=== PATIENT | female | born 1945 | race Caucasian/White ===

== ENCOUNTER 2023-11-11 09:33 | Emergency (ER) | payer OTHER ==
[~2023-11-11] VITALS: Ht 160 cm; Wt 57.2 kg
[2023-11-11 09:35] VITALS: BP_SYST 174; PULSE 66; RESP 18; TEMP 96.8; O2SAT 98
[2023-11-11 10:15] LABS: BASOPHILS % (AUTO) 0.5 % (0.0-2.0); EOSINOPHILS # (AUTO) 0.1 K/uL (0.0-0.4); EOSINOPHILS % (AUTO) 0.8 % (0.0-4.0); HEMATOCRIT 40.8 % (36-48); HEMOGLOBIN 13.6 g/dL (12.0-16.0); LYMPHOCYTES # (AUTO) 2.4 K/uL (1.0-5.5); LYMPHOCYTES % (AUTO) 31.7 % (20.5-51.5); MEAN CORPUSCULAR HEMOGLOBIN 32 pg (27-31); MEAN CORPUSCULAR HGB CONC 33 % (32-36); MEAN CORPUSCULAR VOLUME 95 fL (79.0-98.0); MONOCYTES # (AUTO) 0.6 K/uL (0.0-1.0); MONOCYTES % (AUTO) 7.7 % (1.7-9.3); NEUTROPHILS # (AUTO) 4.4 K/uL (1.8-7.7); NEUTROPHILS % (AUTO) 59.3 % (40.0-70.0); PLATELET COUNT (AUTO) 258 K/uL (130-430); RED BLOOD CELL COUNT(AUTO) 4.28 MIL/uL (4.2-6.2); RED CELL DISTRIBUTION WIDTH 14.3 % (9.0-15.0); WHITE BLOOD COUNT (AUTO) 7.5 K/uL (4.8-10.8)
[2023-11-11 10:32] LABS: ANION GAP 12 (5-15); CALCIUM 9.1 mg/dL (8.4-11.0); CARBON DIOXIDE 24 mmol/L (23-29); CHLORIDE 105 mmol/L (98-107); CREATININE 1.27 mg/dL (0.55-1.30); GLUCOSE 91 mg/dL (74-106); POTASSIUM 3.6 mmol/L (3.5-5.1); SODIUM SERUM 141 mmol/L (136-145); UREA NITROGEN, BLOOD 16 mg/dL (8-21)
[2023-11-11] MEDS ORDERED: NAPR-688 PO (10:52)
[2023-11-11] MEDS ORDERED: CLON0.5T4 PO (10:52)
[2023-11-11 11:20] VITALS: BP_SYST 119; PULSE 69; RESP 18; O2SAT 99
== END 2023-11-11 11:10 | disposition home or self-care (01) ==
LOC: SED 09:33
DX: R07.89 Other chest pain (principal); M54.2 Cervicalgia; M25.512 Pain in left shoulder; I10 Essential (primary) hypertension; Z79.899 Other long term (current) drug therapy; Z79.2 Long term (current) use of antibiotics
CPT/HCPCS: 36415; 71045; 80048; 83880; 84484; 85025; 93005; 99283

== ENCOUNTER 2023-12-20 09:52 | Emergency (ER) | payer OTHER ==
[~2023-12-20] VITALS: Ht 160 cm; Wt 56.7 kg
[~2023-12-20 09:52] MED LIST: CLON0.5T4 PO; NAPR-688 PO
[2023-12-20 10:18] VITALS: BP_SYST 166; PULSE 61; RESP 15; TEMP 97.7; O2SAT 97
[2023-12-20] MEDS ORDERED: PRED20TA PO (10:21)
[2023-12-20] MEDS ORDERED: FEXO180T94 PO (10:21)
[2023-12-20] MEDS ORDERED: FAMO40TA71 PO (10:21)
[2023-12-20] MEDS: FAMOTIDINE 20 MG TABLET PO ONE (10:21)
[2023-12-20] MEDS: predniSONE 20 MG TABLET PO ONE (10:21)
[2023-12-20 10:35] VITALS: BP_SYST 166; PULSE 61; RESP 15; TEMP 97.7; O2SAT 97
== END 2023-12-20 10:30 | disposition home or self-care (01) ==
LOC: SED 09:52
DX: S80.862A Insect bite (nonvenomous), left lower leg, initial encounter (principal); S80.861A Insect bite (nonvenomous), right lower leg, initial encounter; S40.862A Insect bite (nonvenomous) of left upper arm, initial encounter; S40.861A Insect bite (nonvenomous) of right upper arm, initial encounter; S10.86XA Insect bite of other specified part of neck, initial encounter; I10 Essential (primary) hypertension; Z79.899 Other long term (current) drug therapy; W57.XXXA Bitten or stung by nonvenomous insect and other nonvenomous arthropods, initial encounter; Y93.89 Activity, other specified; Y92.89 Other specified places as the place of occurrence of the external cause; Y99.8 Other external cause status
CPT/HCPCS: 99283; J7512